=== PATIENT | female | born 1960 | race African-American/Black ===

== ENCOUNTER 2017-04-04 00:46 | Emergency (ER) | payer OTHER ==
[~2017-04-04] VITALS: Ht 162.6 cm; Wt 116.8 kg
[~2017-04-04 00:46] MED LIST: AMOX500T PO; CART300C PO; HYDR-755 PO; METO100T PO; PHENTAB; PLAV75TA29 PO; TRAM50TA PO; TYLELIQ
[2017-04-04 00:51] VITALS: BP 179/108; PULSE 91; RESP 18; TEMP 98.1; O2SAT 99
[2017-04-04 01:05] VITALS: BP 215/108; PULSE 76; RESP 18; O2SAT 96
[2017-04-04 01:21] LABS: MEAN CORPUSCULAR HGB CONC 29.9 % (32.0-36.0)
[2017-04-04] MEDS ORDERED: DEXA4TAB PO (01:23)
[2017-04-04] MEDS ORDERED: NIFE20 PO (01:26)
[2017-04-04] MEDS ORDERED: ZANT150T2 PO (01:26)
[2017-04-04] MEDS ORDERED: OMEP40CA2 PO (01:26)
[2017-04-04] MEDS ORDERED: TYLE325T PO (01:26)
[2017-04-04] MEDS ORDERED: BUTATAB6 PO (01:26)
--- NOTE | 2017-04-04 01:27 | PD ---
HPI Chief Complaint: Numbness/Tingling Time Seen by Provider: 01:18 Travel History International Travel<30 days: No Contact w/Intl Traveler<30days: No Traveled to known affect area: No History of Present Illness HPI 56-year-old female presents to the emergency department by private transportation for complaint of back muscle cramping lower extremity muscle cramping and intermittent or muscle cramping. No chest pain no shortness of breath no nausea no vomiting no abdominal pain. Patient has history of hypertension as well as CAD with previous AL and stent placement 2. Patient states symptoms do not remind her of any cardiac issues. No palpitations no shortness of breath no nausea no vomiting no referred neck jaw or abdominal pain. Patient does not report any headache. The patient states that she has been increasing her fluid hydration recently and increased urine output. Patient rates discomfort 5/10 in intensity. Patient denies any new activity or exercise or injury. No report of bladder or bowel dysfunction. Majority of lower extremity discomfort and cramping is related to the right calf. No new lower extremity swelling. No report of protracted bedrest surgical procedure or long distance travel. Patient takes metoprolol and nifedipine for blood pressure management. No report of diuretic use. PFSH Past Medical History Narrative Medical CAD, AL, cardiac catheterization with stent 2, hypertension, headache, obesity , gastric band, , herniorrhaphy; no tobacco use; nursing notes reviewed Cardiovascular Problems: Yes (AL AND STENTS) Diminished Hearing: No Headaches: Yes Hypertension: Yes Inguinal Hernia: Yes Myocardial Infarction: Yes Tetanus Vaccination: Unknown Influenza Vaccination: No ?: Not Past Surgical History Cardiac Surgery: Yes (STENTS X 2) Section: Yes (X2) Coronary Stent: Yes (x2) Other Surgery: Yes (Gastric lap band, hernia repair with mesh) Social History Alcohol Use: No Tobacco Use: No Substance Use: No Allergies-Medications (Allergen,Severity, Reaction): Coded Allergies: Latex (Verified Allergy, Severe, Rash, 04/04/17) Pineapple (Verified Allergy, Severe, Swelling, 04/04/17) Seafood (Verified Allergy, Severe, Swelling, 04/04/17) Iodine (Verified Allergy, Intermediate, SWELLING, 04/04/17) Reported Meds & Prescriptions Reported Meds & Active Scripts Active Plavix (Clopidogrel Bisulfate) 75 Mg Tab 75 Mg PO DAILY Metoprolol Tartrate 100 Mg Tab 100 Mg PO DAILY Reported Tylenol (Acetaminophen) 325 Mg Tab 650 Mg PO Q4H PRN Zantac (Ranitidine HCl) 150 Mg Tab 150 Mg PO BID Svleiyzavm-Ovsjalqvrmehy-Ausmlpii 50-325-40 Mg Tab 1 Tab PO Q4H PRN Do not exceed 6 tablets/day. Omeprazole 40 Mg Cap 40 Mg PO DAILY Nifedipine 20 Mg Cap 30 Mg PO TID Dexamethasone 4 Mg Tab 4 Mg PO DAILY Hydroxyzine HCl 10 Mg Tab 50 Mg PO HS Metoprolol Tartrate 100 Mg Tab 100 Mg PO DAILY Plavix (Clopidogrel Bisulfate) 75 Mg Tab 75 Mg PO DAILY Review of Systems Except as stated in HPI: all other systems reviewed are Neg General / Constitutional: No: Fever, Chills HENT: No: Congestion Cardiovascular: No: Chest Pain or Discomfort, Diaphoresis, Edema Respiratory: No: Shortness of Breath, Hemoptysis, Pleuritic Pain Gastrointestinal: No: Nausea, Vomiting, Abdominal Pain Genitourinary: Positive: Frequency, Flank Pain Musculoskeletal: Positive: Cramping (back, legs, arms), Pain (back, arms, legs) , No: Weakness, Edema Skin: No Rash, No Lumps Neurologic: No: Weakness, Dizziness, Syncope, Focal Abnormalities, Coordination Problem, Headache, Change in Mentation, Paresthesia Psychiatric: No: Anxiety Endocrine: No: Heat Intolerance Hematologic/Lymphatic: No: Easy Bruising Physical Exam Narrative GENERAL: Well-developed well-nourished obese female in no acute distress no respiratory distress; GCS 15; triage vital signs hypertensive BP SKIN: Warm and dry. HEAD: Normocephalic. EYES: No scleral icterus. No injection or drainage. NECK: Supple, trachea midline. No JVD or lymphadenopathy. CARDIOVASCULAR: Regular rate and rhythm without murmurs, gallops, or rubs. RESPIRATORY: Breath sounds equal bilaterally. No accessory muscle use. GASTROINTESTINAL: Abdomen soft, non-tender, nondistended. MUSCULOSKELETAL: No cyanosis, or edema. Bilateral radial and dorsalis pedis pulses 2+ to palpation. BACK: Nontender without obvious deformity. No CVA tenderness. Data Data Last Documented VS Vital Signs Date Time Temp Pulse Resp B/P Pulse Ox O2 Delivery O2 Flow Rate FiO2 04/04/17 02:20 80 18 167/83 100 Room Air 04/04/17 00:51 98.1 Orders Basic Metabolic Panel (Bmp) (04/04/17 01:18) Ckmb (Isoenzyme) Profile (04/04/17 01:18) Complete Blood Count With Diff (04/04/17:18) Magnesium (Mg) (04/04/17 01:18) Troponin I (04/04/17:18) Ecg Monitoring (04/04/17:18) Bilateral Bp Monitoring (04/04/17:18) Iv Access Insert/Monitor (04/04/17:18) Oximetry (04/04/17:18) Sodium Chloride 0.9% Flush (Ns Flush) (04/04/17 01:30) Urinalysis - C+S If Indicated (04/04/17:18) Ketorolac Inj (Toradol Inj) (04/04/17 01:30) Electrocardiogram (04/04/17 ) Clonidine (Catapres) (04/04/17 02:00) Potassium Chloride (Kcl) (04/04/17 02:45) Labs Laboratory Tests Test 04/04/17 01:35 White Blood Count 11.2 TH/MM3 Red Blood Count 4.57 MIL/MM3 Hemoglobin 9.0 GM/DL Hematocrit 30.2 % Mean Corpuscular Volume 66.1 FL Mean Corpuscular Hemoglobin 19.8 PG Mean Corpuscular Hemoglobin 29.9 % Concent Red Cell Distribution Width 16.4 % Platelet Count 456 TH/MM3 Mean Platelet Volume 8.0 FL Neutrophils (%) (Auto) 71.3 % Lymphocytes (%) (Auto) 20.3 % Monocytes (%) (Auto) 7.6 % Eosinophils (%) (Auto) 0.6 % Basophils (%) (Auto) 0.2 % Neutrophils # (Auto) 8.0 TH/MM3 Lymphocytes # (Auto) 2.3 TH/MM3 Monocytes # (Auto) 0.8 TH/MM3 Eosinophils # (Auto) 0.1 TH/MM3 Basophils # (Auto) 0.0 TH/MM3 CBC Comment AUTO DIFF Differential Comment AUTO DIFF CONFIRMED Platelet Estimate NORMAL Platelet Morphology Comment NORMAL Ovalocytes 1+ Urine Color STRAW Urine Turbidity CLEAR Urine pH 5.5 Urine Specific Ransom 1.025 Urine Protein NEG mg/dL Urine Glucose (UA) NEG mg/dL Urine Ketones NEG mg/dL Urine Occult Blood NEG Urine Nitrite NEG Urine Bilirubin NEG Urine Leukocyte Esterase NEG Urine RBC 0-2 /hpf Urine WBC 0-2 /hpf Urine Squamous Epithelial 0-5 /hpf Cells Urine Bacteria NONE /hpf Microscopic Urinalysis Comment CULT NOT INDICATED Sodium Level 139 MEQ/L Potassium Level 3.3 MEQ/L Chloride Level 103 MEQ/L Carbon Dioxide Level 26.1 MEQ/L Anion Gap 10 MEQ/L Blood Urea Nitrogen 12 MG/DL Creatinine 0.87 MG/DL Estimat Glomerular Filtration 82 ML/MIN Rate Random Glucose 128 MG/DL Calcium Level 8.9 MG/DL Magnesium Level 2.1 MG/DL Total Creatine Kinase 75 U/L Troponin I LESS THAN 0.02 NG/ML MDM Medical Decision Making Medical Screen Exam Complete: Yes Emergency Medical Condition: Yes Medical Record Reviewed: Yes Interpretation(s) EKG: Normal sinus rhythm rate [address] elevation or injury pattern change noted Urinalysis is normal CBC is automated differential patient has anemia hemoglobin 9.0 Troponin I is less than 0.02 CK 75 within normal limits Metabolic panel remarkable for hypokalemia potassium 3.3 normal range BUN and creatinine CBC & BMP Diagram 04/04/17 01:35 Vital Signs Date Time Temp Pulse Resp B/P Pulse Ox O2 Delivery O2 Flow Rate FiO2 04/04/17 02:01 200/104 196/107 04/04/17 01:05 76 18 215/108 96 Room Air 04/04/17 00:51 98.1 91 18 179/108 99 Differential Diagnosis Myalgias, electrolyte disturbance, arrhythmia, atypical chest pain, aortic dissection, uncontrolled hypertension, UTI Narrative Course Patient placed on monitor IV access obtained specimens collected and sent for resulting EKG ordered; Toradol 30 mg IV administered Patient ambulatory to the bathroom without difficulty At 2:40 AM patient resting comfortably blood pressure good response to clonidine Lab values resulted patient identified to have mild hypokalemia oral potassium replacement provided Patient reports she is out of her medications and needs refills Patient is stable at this time for outpatient management and follow-up with primary care provider Diagnosis Primary Impression: Muscle spasm Additional Impressions: Hypokalemia HTN (hypertension) Qualified Code: I10 - Essential hypertension Medication refill Anemia Referrals: [facility] call for appointment Primary Care Physician 2 days Patient Instructions: General Instructions Additional Instructions: Follow-up with primary care provider Add potassium containing foods and beverages to dietary intake Return to the emergency department for any concerns or change in condition Med/Other Pt SpecificInfo: Prescription(s) given Scripts Clopidogrel (Plavix)75 Mg Tab75 Mg PO DAILY #30 TAB Ref 0 Prov:Arcelia Perez MD 04/04/17 Metoprolol Tartrate 100 Mg [id number] Mg PO DAILY #30 TAB Ref 0 Prov:Arcelia Perez MD 04/04/17 Disposition: 01 DISCHARGE HOME Condition: Stable Arcelia Perez MD April 04, 2017 01:27 Arcelia Perez MD April 04, 2017 01:27
[2017-04-04] MEDS ORDERED: KETOROLAC TROMETHAMINE 30 MG/ML (IVP) VIAL IV PUSH ONE (01:30)
[2017-04-04] MEDS ORDERED: SODIUM CHLORIDE 0.9% FLUSH 10 ML FLUSH IVF PRN (01:30)
[2017-04-04 01:48] LABS: BLOOD, URINE NEG (NEG); GLUCOSE,URINE NEG (NEG); KETONE, URINE NEG (NEG); NITRITE,URINE NEG (NEG); PH, URINE 5.5 (5.0-8.5)
[2017-04-04 01:51] LABS: BASOPHIL % 0.2 % (0.0-2.0); EOSINOPHIL # 0.1 TH/MM3 (0-0.4); EOSINOPHIL % 0.6 % (0.0-4.0); HEMATOCRIT 30.2 % (35.0-46.0); LYMPH % 20.3 % (9.0-44.0); LYMPHOCYTE # 2.3 TH/MM3 (1.0-4.8); MEAN CELL VOLUME 66.1 FL (80.0-100.0); MEAN CORPUSCULAR HEMOGLOBIN 19.8 PG (27.0-34.0); MONO % 7.6 % (0.0-8.0); NEUT % 71.3 % (16.0-70.0); PLATELET COUNT 456 TH/MM3 (150-450); RED BLOOD COUNT 4.57 MIL/MM3 (4.00-5.30); RED CELL DISTRIBUTION WIDTH 16.4 % (11.6-17.2); WHITE BLOOD COUNT 11.2 TH/MM3 (4.0-11.0)
[2017-04-04 01:56] LABS: HEMO FLAGS AUTO DIFF
[2017-04-04 01:57] LABS: RBC, URINE 0-2 /hpf (0-3); SQUAMOUS EPITHELIAL CELL URINE 0-5 /hpf (0-5); URINE COLOR STRAW (YELLW/STRAW); WBC, URINE 0-2 /hpf (0-5)
[2017-04-04 01:58] LABS: CHLORIDE 103 MEQ/L (98-107); COMMENT (UR) CULT NOT INDICATED; CULTURE IF INDICATED CULT NOT INDICATED; POTASSIUM 3.3 MEQ/L (3.5-5.1); SODIUM (NA) 139 MEQ/L (136-145)
[2017-04-04] MEDS ORDERED: cloNIDine HCL 0.1 MG TAB PO ONE (02:00)
[2017-04-04 02:01] VITALS: BP_SYST 196; BP_SYST 200; BP_DIAS 104; BP_DIAS 107
[2017-04-04 02:02] LABS: ANION GAP 10 MEQ/L (5-15); BICARBONATE 26.1 MEQ/L (21.0-32.0); BLOOD UREA NITROGEN 12 MG/DL (7-18); MAGNESIUM 2.1 MG/DL (1.5-2.5)
[2017-04-04 02:05] LABS: GLOMERULAR FILTRATION RATE 82 ML/MIN (>89)
[2017-04-04 02:11] LABS: CREATINE KINASE 75 U/L (26-192)
[2017-04-04 02:20] VITALS: BP 167/83; PULSE 80; RESP 18; O2SAT 100
[2017-04-04 02:25] LABS: OVALOCYTES 1+ (NORMAL); PLATELET ESTIMATE SMEAR NORMAL (NORMAL); PLATELET MORPHOLOGY NORMAL (NORMAL); SCAN/DIFF AUTO DIFF CONFIRMED
[2017-04-04] MEDS ORDERED: POTASSIUM CHLORIDE 10 MEQ CONTROLLED RELEASE TAB PO ONE (02:45)
[2017-04-04] MEDS ORDERED: METO100T PO (02:46)
[2017-04-04] MEDS ORDERED: PLAV75TA29 PO (02:46)
--- NOTE | 2017-04-04 09:51 | EKG ---
Date Performed: 04/04/2017 Time Performed: 01:24:52 PTAGE: 56 years EKG: Sinus rhythm Inferior T wave changes are nonspecific Borderline ECG NO PREVIOUS TRACING DOCTOR: Nathalie Ziegler Interpretating Date/Time 04/04/2017 09:49:59
== END 2017-04-04 03:02 | disposition home or self-care (01) ==
LOC: PHED 00:46
DX: M62.838 Other muscle spasm (principal); E87.6 Hypokalemia; I10 Essential (primary) hypertension; D64.9 Anemia, unspecified; I25.2 Old myocardial infarction; I25.10 Atherosclerotic heart disease of native coronary artery without angina pectoris; Z76.0 Encounter for issue of repeat prescription
CPT/HCPCS: 80048; 81001; 82550; 83735; 84484; 85025; 93005; 96374; 99283; J1885

== ENCOUNTER 2017-04-07 14:35 | Emergency (ER) | payer OTHER ==
[~2017-04-07] VITALS: Ht 162.6 cm; Wt 115.0 kg
[~2017-04-07 14:35] MED LIST changes: -AMOX500T PO; +BUTATAB6 PO; -CART300C PO; +DEXA4TAB PO; +NIFE20 PO; +OMEP40CA2 PO; -PHENTAB; -TRAM50TA PO; +TYLE325T PO; -TYLELIQ; +ZANT150T2 PO
[2017-04-07 14:40] VITALS: BP 143/95; PULSE 79; RESP 18; TEMP 98.5; O2SAT 100
[2017-04-07] MEDS ORDERED: guaiFENesin/CODEINE SYRUP 200 MG/20 MG/10 ML CUP PO ONE (15:15)
[2017-04-07] MEDS ORDERED: IBUPROFEN 600 MG TAB PO ONE (15:15)
--- NOTE | 2017-04-07 15:17 | PD ---
HPI Chief Complaint: Cold / Flu Symptoms Time Seen by Provider: 14:54 Travel History International Travel<30 days: No Contact w/Intl Traveler<30days: No Traveled to known affect area: No History of Present Illness HPI 56yo F with PMH of CAD, HTN presents to the ED with c/o productive cough, nasal congestion, throat pain, left rib pain since last night. +Chills. Denies any fever, chest pain, sob, n/v, abdominal pain, trauma, urinary complaint, vaginal complaint, focal weakness or numbness. Took alleve and it did not really help. Pt was here 3 days ago for back and leg muscle spasm and had blood work drawn and urinalysis was negative. Had K of 3.3 which was replaced. Pt states that has improved. PFSH Past Medical History Cardiovascular Problems: Yes ([place] STENTS) Diminished Hearing: No Headaches: Yes Hypertension: Yes Inguinal Hernia: Yes Immunizations Current: Yes Myocardial Infarction: Yes Tetanus Vaccination: > 5 Years Influenza Vaccination: No ?: Not LMP: MENOPAUSE Past Surgical History Cardiac Surgery: Yes (STENTS X 2) Section: Yes (X2) Coronary Stent: Yes (x2) Other Surgery: Yes (Gastric lap band, hernia repair with mesh) Social History Alcohol Use: No Tobacco Use: No Substance Use: No Allergies-Medications (Allergen,Severity, Reaction): Coded Allergies: Latex (Verified Allergy, Severe, Rash, 04/07/17) Pineapple (Verified Allergy, Severe, Swelling, 04/07/17) Seafood (Verified Allergy, Severe, Swelling, 04/07/17) Iodine (Verified Allergy, Intermediate, SWELLING, 04/07/17) Reported Meds & Prescriptions Reported Meds & Active Scripts Active Robitussin 12 Hour Cough Liq (Dextromethorphan Polistirex Liq) 30 Mg/5 Ml Ariella 10 Ml PO Q12H PRN 5 Days Reported Tylenol (Acetaminophen) 325 Mg Tab 650 Mg PO Q4H PRN Zantac (Ranitidine HCl) 150 Mg Tab 150 Mg PO DAILY Nzhrwezgcn-Didbcgfucdnro-Jwievhak 50-325-40 Mg Tab 1 Tab PO Q4H PRN Do not exceed 6 tablets/day. Omeprazole 40 Mg Cap 40 Mg PO DAILY Nifedipine 20 Mg Cap 30 Mg PO BID Dexamethasone 4 Mg Tab 4 Mg PO DAILY Hydroxyzine HCl 10 Mg Tab 50 Mg PO HS Metoprolol Tartrate 100 Mg Tab 100 Mg PO DAILY Plavix (Clopidogrel Bisulfate) 75 Mg Tab 75 Mg PO DAILY Review of Systems Except as stated in HPI: all other systems reviewed are Neg Physical Exam Narrative GENERAL: 56yo F in mild distress. SKIN: Focused skin assessment warm/dry. HEAD: Atraumatic. Normocephalic. EYES: Pupils equal and round. No scleral icterus. No injection or drainage. ENT: +Increase bilateral nasal turbinates. NECK: Trachea midline. No JVD. CARDIOVASCULAR: Regular rate and rhythm. No murmur appreciated. RESPIRATORY: No accessory muscle use. Clear to auscultation. Breath sounds equal bilaterally. GASTROINTESTINAL: Abdomen soft, non-tender, nondistended. No rebound tenderness or guarding. MUSCULOSKELETAL: +TTP left anterior ribs 9-12. No rash, erythema or ecchymoses. NEUROLOGICAL: Awake and alert. No obvious cranial nerve deficits. Motor grossly within normal limits. Normal speech. PSYCHIATRIC: Appropriate mood and affect; insight and judgment normal. Data Data Last Documented VS Vital Signs Date Time Temp Pulse Resp B/P Pulse Ox O2 Delivery O2 Flow Rate FiO2 04/07/17 18:06 78 20 175/91 99 04/07/17 16:43 Room Air 04/07/17 14:40 98.5 Orders Influenzae A/B Antigen (04/07/17 15:03) Ribs, Uni (W/Exp Cxr-Min 3vw) (04/07/17 ) Ibuprofen (Motrin) (04/07/17 15:15) Guaifen-Cod 200-20 Mg/10ml Liq (Robituss (04/07/17 15:15) Acetaminophen (Tylenol) (04/07/17 15:30) Diazepam (Valium) (04/07/17 15:45) Electrocardiogram (04/07/17 15:30) Diphenhydramine Inj (Benadryl Inj) (04/07/17 16:15) Complete Blood Count With Diff (04/07/17 16:09) Basic Metabolic Panel (Bmp) (04/07/17 16:09) Prothrombin Time / Inr (Pt) (04/07/17 16:09) Act Partial Throm Time (Ptt) (04/07/17 16:09) Troponin I (04/07/17 16:09) Ed Urine Pregnancytest Poc (04/07/17 16:09) Ct Thorax/ Chest Wo Iv Contras (04/07/17 ) Labs Laboratory Tests Test 04/07/17 16:18 White Blood Count 8.2 TH/MM3 Red Blood Count 4.82 MIL/MM3 Hemoglobin 9.9 GM/DL Hematocrit 31.9 % Mean Corpuscular Volume 66.2 FL Mean Corpuscular Hemoglobin 20.5 PG Mean Corpuscular Hemoglobin 31.0 % Concent Red Cell Distribution Width 16.6 % Platelet Count 379 TH/MM3 Mean Platelet Volume 8.1 FL Neutrophils (%) (Auto) 56.6 % Lymphocytes (%) (Auto) 26.5 % Monocytes (%) (Auto) 13.4 % Eosinophils (%) (Auto) 3.4 % Basophils (%) (Auto) 0.1 % Neutrophils # (Auto) 4.6 TH/MM3 Lymphocytes # (Auto) 2.2 TH/MM3 Monocytes # (Auto) 1.1 TH/MM3 Eosinophils # (Auto) 0.3 TH/MM3 Basophils # (Auto) 0.0 TH/MM3 CBC Comment AUTO DIFF Differential Comment AUTO DIFF CONFIRMED Target Cells 1+ Ovalocytes 1+ Stomatocytes 1+ Prothrombin Time 10.5 SEC Prothromb Time International 1.0 RATIO Ratio Activated Partial 25.3 SEC Thromboplast Time Sodium Level 141 MEQ/L Potassium Level 3.4 MEQ/L Chloride Level 103 MEQ/L Carbon Dioxide Level 29.1 MEQ/L Anion Gap 9 MEQ/L Blood Urea Nitrogen 10 MG/DL Creatinine 0.79 MG/DL Estimat Glomerular Filtration 92 ML/MIN Rate Random Glucose 90 MG/DL Calcium Level 8.5 MG/DL Troponin I LESS THAN 0.02 NG/ML [facility] Medical Decision Making Medical Screen Exam Complete: Yes Emergency Medical Condition: Yes Interpretation(s) EKG: NSR 69bpm. Normal axis. No ST segment elevation or depression. TWI III. Differential Diagnosis Costochondritis vs. URI vs. Bronchitis vs. Pneumonia Narrative Course 56yo F with flu like symptoms and left sided rib pain. Pt is very tender to palpation on left lower anterior ribs. Xray of left rib and CXR showed no left sided rib fracture. Slight convexity along the ascending aorta, aneurysm cannot be excluded. CT chest recommended. Pt states she has had iodine before and has had itching that was resolved by benadryl. Pt has also had iodine contrast without any itching. Pt denies any anaphylactic reaction with iodine. Explained that I need to use IV contrast to r/o aneurysm and will give her benadryl 50mg IV now. Pt understands risks and benefits and will do the CT with contrast. Discussed with radiologist who actually said I can do CT chest without contrast for aortic aneurysm. CT chest showed normal thoracic aorta diameter. Pt reevaluated at bedside after valium, ibuprofen and states pain has resolved. Cough has also improved after robitussin with codeine. Influenza negative. Labs reviewed, no leukocytosis. H/H low but better than last time. Troponin negative. K: 3.4. I do not believe the rib pain is cardiac. It is very localized and likely related to coughing. Denies any chest pain or sob. Return precautions given. Diagnosis Primary Impression: URI (upper respiratory infection) Qualified Code: J06.9 - Upper respiratory tract infection, unspecified type Patient Instructions: General Instructions Departure Forms: Tests/Procedures Additional Instructions: Please follow up with your PMD in 3-7 days. Return to the ED if symptoms worsen. Med/Other Pt SpecificInfo: Prescription(s) given Scripts Ibuprofen 600 Mg [id number] Mg PO Q8HR PRN (PAIN) #20 TAB Ref 0 Prov:Brinda Jameson DO 04/07/17 Dextromethorphan Polistirex Liq (Robitussin 12 Hour Cough Liq)30 Mg/5 Ml Sus10 Ml PO Q12H PRN (COUGH) 5 Days Ref 0 Prov:Brinda Jameson DO 04/07/17 Disposition: 01 DISCHARGE HOME Condition: Stable Brinda Jameson DO April 07, 2017 15:17
[2017-04-07] MEDS ORDERED: ACETAMINOPHEN 325 MG TAB PO ONE (15:30)
--- NOTE | 2017-04-07 15:43 | RADHPO ---
EXAM DATE/TIME: 04/07/2017 15:16 [facility] COMPARISON: No previous studies available for comparison. INDICATIONS : Lower left side chest and rib pain. Cough and congestion. MEDICAL HISTORY : None. SURGICAL HISTORY : Umbilical hernia repair. ENCOUNTER: Initial ACUITY: 1 day PAIN SCORE: 5/10 LOCATION: Left lower chest FINDINGS: Multiple views of the left ribs were performed. There is no evidence of displaced fracture. No dest ructive lesions or areas of periosteal thickening are seen. Expiratory view of the chest is negative for pneumothorax. The mediastinal structures are midline. Convexity along the ascending aorta. CONCLUSION: 1. No left-sided rib fracture. 2. Slight convexity along the ascending aorta, aneurysm cannot be excluded. CT chest recommended. Ambrocio Holley MD on April 07, 2017 at 15:40 Board Certified Radiologist. This report was verified electronically.
[2017-04-07] MEDS ORDERED: DIAZEPAM 5 MG TAB PO ONE (15:45)
[2017-04-07 15:46] VITALS: BP 156/91; PULSE 76; RESP 22; O2SAT 100
[2017-04-07] MEDS ORDERED: diphenhydrAMINE HCL 50 MG/ML VIAL IV PUSH ONE (16:15)
[2017-04-07 16:36] LABS: CHLORIDE 103 MEQ/L (98-107); POTASSIUM 3.4 MEQ/L (3.5-5.1); SODIUM (NA) 141 MEQ/L (136-145)
[2017-04-07 16:40] LABS: ANION GAP 9 MEQ/L (5-15); BICARBONATE 29.1 MEQ/L (21.0-32.0); BLOOD UREA NITROGEN 10 MG/DL (7-18)
[2017-04-07 16:41] LABS: APTT (PATIENT) 25.3 SEC (24.3-30.1); AUTOMATED NEUTROPHIL # 4.6 TH/MM3 (1.8-7.7); BASOPHIL % 0.1 % (0.0-2.0); EOSINOPHIL # 0.3 TH/MM3 (0-0.4); EOSINOPHIL % 3.4 % (0.0-4.0); HEMATOCRIT 31.9 % (35.0-46.0); LYMPH % 26.5 % (9.0-44.0); LYMPHOCYTE # 2.2 TH/MM3 (1.0-4.8); MEAN CELL VOLUME 66.2 FL (80.0-100.0); MEAN CORPUSCULAR HEMOGLOBIN 20.5 PG (27.0-34.0); MONO % 13.4 % (0.0-8.0); NEUT % 56.6 % (16.0-70.0); PLATELET COUNT 379 TH/MM3 (150-450); PROTHROMBIN TIME - PATIENT 10.5 SEC (9.8-11.6); RED BLOOD COUNT 4.82 MIL/MM3 (4.00-5.30); RED CELL DISTRIBUTION WIDTH 16.6 % (11.6-17.2); WHITE BLOOD COUNT 8.2 TH/MM3 (4.0-11.0)
[2017-04-07 16:43] VITALS: BP 176/93; PULSE 70; RESP 18; O2SAT 98
[2017-04-07 16:43] LABS: GLOMERULAR FILTRATION RATE 92 ML/MIN (>89)
[2017-04-07 16:47] LABS: HEMO FLAGS AUTO DIFF
--- NOTE | 2017-04-07 17:31 | RADHPO ---
EXAM DATE/TIME: 04/07/2017 16:47 [facility] COMPARISON: RIBS LEFT(W PA CXR MIN 3VWS), April 07, 2017, 15:16. INDICATIONS : Abnormal rib xray. Evaluate for aneurysm. RADIATION DOSE: 19.21 CTDIvol (mGy) MEDICAL HISTORY : Cardiovascular disease. Hypertension. Anticoagulant therapy. SURGICAL HISTORY : Umbilical hernia repair. Coronary artery stent. Gastric lap band. ENCOUNTER: Initial ACUITY: 1 day PAIN SCALE: 4/10 LOCATION: chest TECHNIQUE: Volumetric scanning of the chest was performed. Using automated exposure control and adjustment of t he mA and/or kV according to patient size, radiation dose was kept as low as reasonably achievable to obtain optimal diagnostic quality images. FINDINGS: LUNGS: There is no consolidation or pneumothorax. No concerning pulmonary nodule is visualized. PLEURAE: There is no pleural thickening or pleural effusion. MEDIASTINUM: Thoracic aortic diameter within normal limits measuring less than 4 cm. Coronary artery calcification s noted. The heart is diffusely enlarged. Small hiatal hernia. AXILLAE: Within normal limits. No lymphadenopathy. MUSCULOSKELETAL: Within normal limits for patient age. MISCELLANEOUS: Laparoscopic band in place in the gastric region. CONCLUSION: 1. Thoracic aorta diameter within normal limits. 2. Diffusely enlarged heart. 3. Coronary artery calcifications. 4. Lungs clear. 5. Postsurgical findings at the stomach indicating laparoscopic band. Александр Preston MD on April 07, 2017 at 17:22 Board Certified Radiologist. This report was verified electronically.
[2017-04-07] MEDS ORDERED: DEXT1SUS PO (17:46)
[2017-04-07 17:51] LABS: OVALOCYTES 1+ (NORMAL); TARGET CELLS 1+ (NORMAL)
[2017-04-07 17:52] LABS: SCAN/DIFF AUTO DIFF CONFIRMED; STOMATOCYTES 1+ (NORMAL)
[2017-04-07 18:06] VITALS: BP 175/91
[2017-04-07] MEDS ORDERED: IBUP-232 PO (18:09)
--- NOTE | 2017-04-08 05:56 | EKG ---
Date Performed: 04/07/2017 Time Performed: 15:30:46 PTAGE: 56 years EKG: Sinus rhythm Normal ECG PREVIOUS TRACING : 04/04/2017 01.24 Compared to prior tracing no significant change DOCTOR: Trinity Bernal Interpretating Date/Time 04/08/2017 05:55:54
== END 2017-04-07 18:16 | disposition home or self-care (01) ==
LOC: PHED 14:35
DX: J06.9 Acute upper respiratory infection, unspecified (principal); R07.81 Pleurodynia; I10 Essential (primary) hypertension; I25.2 Old myocardial infarction; I25.10 Atherosclerotic heart disease of native coronary artery without angina pectoris; R79.1 Abnormal coagulation profile; Z95.5 Presence of coronary angioplasty implant and graft; Z98.84 Bariatric surgery status
CPT/HCPCS: 71101; 71250; 80048; 84484; 84703; 85025; 85610; 85730; 87804; 93005; 96374; 99284; J1200

== ENCOUNTER 2017-06-25 22:43 | Emergency (ER) | payer OTHER ==
[~2017-06-25] VITALS: Ht 162.6 cm; Wt 129.5 kg
[~2017-06-25 22:43] MED LIST changes: +DEXT1SUS PO; +IBUP-232 PO
[2017-06-25 22:46] VITALS: BP 176/94; PULSE 96; RESP 18; TEMP 98.4; O2SAT 98
[2017-06-25] MEDS ORDERED: OMEP40CA2 PO (23:05)
[2017-06-25] MEDS ORDERED: SODIUM CHLORIDE 0.9% FLUSH 10 ML FLUSH IVF PRN (23:15)
--- NOTE | 2017-06-25 23:19 | PD ---
HPI Chief Complaint: Edema Time Seen by Provider: 23:13 Travel History International Travel<30 days: No Contact w/Intl Traveler<30days: No Traveled to known affect area: No History of Present Illness HPI 57-year-old female presents to the emergency department by private transportation for complaint of bilateral lower extremity and peel edema. Patient states that her discomfort is 5/10 in intensity and feels like she is walking on cotton. Patient also complains of hip pain. Patient denies any chest pain or shortness of breath. Patient's had no fever or chills. Patient denies orthopnea or PND. Patient states that she has recently had her blood pressure medication changed several times and her primary just recently put her back on nifedipine. Patient does not take a diuretic. Patient also complains of nightly muscle cramps affecting both legs and occasionally both hands. Patient states she has not contacted her primary care provider regarding this concern. Patient also complains of generalized fatigue. Patient states that she is concerned because she has had 2 prior heart attacks. Patient does not take aspirin or other medications except for nifedipine. Patient denies dyslipidemia tobaccoism or diabetes. PFSH Past Medical History Narrative Medical CAD [place] 2 cardiac catheterization with stents hypertension GERD LAP-BAND no tobacco use; nursing notes. Cardiovascular Problems: Yes (2 MIs and stents) Diminished Hearing: No GERD: Yes Headaches: Yes Hypertension: Yes Inguinal Hernia: Yes Immunizations Current: Yes Myocardial Infarction: Yes Tetanus Vaccination: > 5 Years Influenza Vaccination: No ?: Not LMP: skips : 5 Para: 2 : 3 Past Surgical History Cardiac Surgery: Yes (STENTS X 2) Section: Yes (X2) Coronary Stent: Yes (x2) Other Surgery: Yes (Gastric lap band, hernia repair with mesh) Social History Alcohol Use: No Tobacco Use: No Substance Use: No Allergies-Medications (Allergen,Severity, Reaction): Coded Allergies: Latex (Verified Allergy, Severe, Rash, 06/25/17) Pineapple (Verified Allergy, Severe, Swelling, 06/25/17) Seafood (Verified Allergy, Severe, Swelling, 06/25/17) Iodine (Verified Allergy, Intermediate, SWELLING, 06/25/17) Reported Meds & Prescriptions Reported Meds & Active Scripts Active Macrobid (Nitrofurantoin Monohydrate Macrocrystals) 100 Mg Capsule 100 Mg PO BID 7 Days Reported Omeprazole 40 Mg Cap 40 Mg PO BID Zantac (Ranitidine HCl) 150 Mg Tab 150 Mg PO DAILY [place]-Jgcckskcdwsjw-Gnrckhmv 50-325-40 Mg Tab 1 Tab PO Q4H PRN Do not exceed 6 tablets/day. Nifedipine 20 Mg Cap 30 Mg PO BID Dexamethasone 4 Mg Tab 4 Mg PO DAILY Hydroxyzine HCl 10 Mg Tab 50 Mg PO HS Metoprolol Tartrate 100 Mg Tab 100 Mg PO DAILY Plavix (Clopidogrel Bisulfate) 75 Mg Tab 75 Mg PO DAILY Review of Systems Except as stated in HPI: all other systems reviewed are Neg General / Constitutional: No: Fever, Chills HENT: No: Congestion Cardiovascular: Positive: Dyspnea on exertion, Edema, No: Chest Pain or Discomfort Respiratory: No: Shortness of Breath, Orthopnea, Pleuritic Pain Gastrointestinal: No: Nausea, Vomiting, Diarrhea, Abdominal Pain Genitourinary: No: Urgency, Frequency, Dysuria Musculoskeletal: Positive: Cramping, Edema, No: Myalgias, Arthralgias Skin: No Rash Neurologic: No: Weakness, Dizziness Psychiatric: No: Anxiety Hematologic/Lymphatic: No: Lymph Node Enlargement Physical Exam Narrative GENERAL: Well-developed well-nourished female in no acute distress no respiratory distress SKIN: Warm and dry. HEAD: Normocephalic. EYES: No scleral icterus. No injection or drainage. NECK: Supple, trachea midline. No JVD or lymphadenopathy. CARDIOVASCULAR: Regular rate and rhythm without murmurs, gallops, or rubs. RESPIRATORY: Breath sounds equal bilaterally. No accessory muscle use. GASTROINTESTINAL: Abdomen soft, non-tender, nondistended. MUSCULOSKELETAL: No cyanosis, bilateral lower leg and pedal edema; dorsalis pedis pulses 2+ to palpation bilaterally. No cording no Homans sign. BACK: Nontender without obvious deformity. No CVA tenderness. Data Data Last Documented VS Vital Signs Date Time Temp Pulse Resp B/P Pulse Ox O2 Delivery O2 Flow Rate FiO2 06/26/17 00:05 14 100 Room Air 06/26/17 00:00 75 139/86 06/25/17 22:46 98.4 Orders Complete Blood Count With Diff (06/25/17 23:13) B-Type Natriuretic Peptide (06/25/17 23:13) Act Partial Throm Time (Ptt) (06/25/17 23:13) Prothrombin Time / Inr (Pt) (06/25/17 23:13) Magnesium (Mg) (06/25/17 23:13) Ckmb (Isoenzyme) Profile (06/25/17 23:13) Troponin I (06/25/17 23:13) Urinalysis - C+S If Indicated (06/25/17 23:13) Iv Access Insert/Monitor (06/25/17 23:13) Electrocardiogram (06/25/17 23:13) Ecg Monitoring (06/25/17 23:13) Oximetry (06/25/17 23:13) Oxygen Administration (06/25/17 23:13) Chest, Single Ap (06/25/17 23:13) Sodium Chloride 0.9% Flush (Ns Flush) (06/25/17 23:15) Thyroid Stimulating Hormone (06/25/17 23:13) Basic Metabolic Panel (Bmp) (06/25/17 23:13) Urine Culture (06/25/17 23:25) Ceftriaxone Inj (Rocephin Inj) (06/26/17 00:30) Potassium Chloride (Kcl) (06/26/17 00:30) Labs Laboratory Tests Test 06/25/17 06/25/17 23:25 23:35 Urine Color YELLOW Urine Turbidity CLOUDY Urine pH 6.0 Urine Specific [place] 1.032 Urine Protein TRACE mg/dL Urine Glucose (UA) NEG mg/dL Urine Ketones 15 mg/dL Urine Occult Blood NEG Urine Nitrite NEG Urine Bilirubin NEG Urine Leukocyte Esterase SMALL Urine RBC 0-2 /hpf Urine WBC 3-5 /hpf Urine Squamous Epithelial > 8 /hpf Cells Urine Bacteria MANY /hpf Microscopic Urinalysis Comment CULTURE INDICATED White Blood Count 18.8 TH/MM3 Red Blood Count 4.43 MIL/MM3 Hemoglobin 9.5 GM/DL Hematocrit 29.9 % Mean Corpuscular Volume 67.5 FL Mean Corpuscular Hemoglobin 21.5 PG Mean Corpuscular Hemoglobin 31.9 % Concent Red Cell Distribution Width 18.8 % Platelet Count 522 TH/MM3 Mean Platelet Volume 7.6 FL Neutrophils (%) (Auto) 66.2 % Lymphocytes (%) (Auto) 24.2 % Monocytes (%) (Auto) 8.0 % Eosinophils (%) (Auto) 0.9 % Basophils (%) (Auto) 0.7 % Neutrophils # (Auto) 12.5 TH/MM3 Lymphocytes # (Auto) 4.5 TH/MM3 Monocytes # (Auto) 1.5 TH/MM3 Eosinophils # (Auto) 0.2 TH/MM3 Basophils # (Auto) 0.1 TH/MM3 CBC Comment AUTO DIFF Differential Comment AUTO DIFF CONFIRMED Platelet Estimate HIGH Platelet Morphology Comment NORMAL Ovalocytes 1+ Prothrombin Time 10.5 SEC Prothromb Time International 1.0 RATIO Ratio Activated Partial 24.0 SEC Thromboplast Time Sodium Level 139 MEQ/L Potassium Level 3.1 MEQ/L Chloride Level 104 MEQ/L Carbon Dioxide Level 29.3 MEQ/L Anion Gap 6 MEQ/L Blood Urea Nitrogen 22 MG/DL Creatinine 1.20 MG/DL Estimat Glomerular Filtration 56 ML/MIN Rate Random Glucose 101 MG/DL Calcium Level 8.7 MG/DL Magnesium Level 2.0 MG/DL Total Creatine Kinase 70 U/L Troponin I LESS THAN 0.02 NG/ML B-Type Natriuretic Peptide 20 PG/ML Thyroid Stimulating Hormone 1.800 uIU/ML 3rd Gen [facility] Medical Decision Making Medical Screen Exam Complete: Yes Emergency Medical Condition: Yes Medical Record Reviewed: Yes Interpretation(s) EKG: Normal sinus rhythm rate [address] elevation or injury pattern change or ectopy noted FINDINGS: Single AP view of the chest. The lungs are clear. Mild cardiac silhouette enlargement. No evidence of pleural effusion or pneumothorax. CONCLUSION: Mild cardiac silhouette enlargement. No acute cardiopulmonary disease identified. Александр Preston MD on June 26, 2017 at 0:11 Board Certified Radiologist. This report was verified electronically. tropnin I: less than 0.02, not elevated bnp: 20, not elevated ua: Many bacteria specific gravity 1.032, trace ketones TSH: 1.800, within normal range CBC & BMP Diagram 06/25/17 23:35 Differential Diagnosis Pedal edema, renal insufficiency, hypoproteinemia/hypoalbuminemia, medication side effect, volume overload, CHF, ACS, Lymphedema Narrative Course IV access obtained specimens collected and sent for resulting EKG ordered EKG sinus rhythm no acute injury pattern no ST elevation or ectopy normal axis and intervals Labs resulted cc automated differential remarkable for white count 18,800 and anemia of chronic disease hemoglobin 9.5 metabolic panel is remarkable for renal insufficiency BUN of 22 and creatinine 1.20 also hypokalemia potassium 3.1I, benign And random glucose grossly within normal limits Troponin I is less than 0.02, not elevated BNP is 20, not elevated also TSH is 1.00 values within normal range next line urinalysis shows many bacteria Cavalier gravity 1.032 normal and cultures indicated Patient given one-time dose of Rocephin IV will be given prescription for Macrobid and was also administered oral replacement of potassium. Diagnosis Primary Impression: UTI (urinary tract infection) Qualified Code: N39.0 - Urinary tract infection without hematuria, site unspecified Additional Impressions: Hypokalemia Renal insufficiency Referrals: Primary Care Physician call for appointment Patient Instructions: General Instructions Additional Instructions: Elevate lower extremities Increase fluid hydration Complete course of antibiotic Return to the emergency department for a concerns or change in condition Follow-up with your primary care provider Add potassium containing foods and beverages to dietary intake Med/Other Pt SpecificInfo: Prescription(s) given Scripts Nitrofurantoin Monohydrate Macrocrystals (Macrobid)100 Mg [id number] Mg PO BID 7 Days Ref 0 Prov:Arcelia Perez MD 06/26/17 Disposition: 01 DISCHARGE HOME Condition: Stable Arcelia Perez MD Jun 25, 2017 23:19
[2017-06-25 23:50] LABS: BLOOD, URINE NEG (NEG); GLUCOSE,URINE NEG (NEG); KETONE, URINE 15 mg/dL (NEG); NITRITE,URINE NEG (NEG)
[2017-06-25 23:53] LABS: AUTOMATED NEUTROPHIL # 12.5 TH/MM3 (1.8-7.7); BASOPHIL # 0.1 TH/MM3 (0-0.2); BASOPHIL % 0.7 % (0.0-2.0); EOSINOPHIL # 0.2 TH/MM3 (0-0.4); EOSINOPHIL % 0.9 % (0.0-4.0); HEMATOCRIT 29.9 % (35.0-46.0); LYMPH % 24.2 % (9.0-44.0); LYMPHOCYTE # 4.5 TH/MM3 (1.0-4.8); MEAN CELL VOLUME 67.5 FL (80.0-100.0); MEAN CORPUSCULAR HEMOGLOBIN 21.5 PG (27.0-34.0); MEAN CORPUSCULAR HGB CONC 31.9 % (32.0-36.0); NEUT % 66.2 % (16.0-70.0); PLATELET COUNT 522 TH/MM3 (150-450); RED BLOOD COUNT 4.43 MIL/MM3 (4.00-5.30); RED CELL DISTRIBUTION WIDTH 18.8 % (11.6-17.2); WHITE BLOOD COUNT 18.8 TH/MM3 (4.0-11.0)
[2017-06-25 23:58] LABS: HEMO FLAGS AUTO DIFF
[2017-06-26] VITALS: BP 139/86; PULSE 75; RESP 14; O2SAT 100
[2017-06-26] LABS: CHLORIDE 104 MEQ/L (98-107); POTASSIUM 3.1 MEQ/L (3.5-5.1); SODIUM (NA) 139 MEQ/L (136-145)
[2017-06-26 00:03] LABS: ANION GAP 6 MEQ/L (5-15); BICARBONATE 29.3 MEQ/L (21.0-32.0); BLOOD UREA NITROGEN 22 MG/DL (7-18)
[2017-06-26 00:04] LABS: RBC, URINE 0-2 /hpf (0-3); SQUAMOUS EPITHELIAL CELL URINE > 8 /hpf (0-5); URINE COLOR YELLOW (YELLW/STRAW)
[2017-06-26 00:05] VITALS: RESP 14; O2SAT 100
[2017-06-26 00:05] LABS: BACTERIA, URINE MANY /hpf; COMMENT (UR) CULTURE INDICATED; CULTURE IF INDICATED CULTURE INDICATED
[2017-06-26 00:06] LABS: PROTHROMBIN TIME - PATIENT 10.5 SEC (9.8-11.6)
[2017-06-26 00:07] LABS: GLOMERULAR FILTRATION RATE 56 ML/MIN (>89)
[2017-06-26 00:10] LABS: CREATINE KINASE 70 U/L (26-192)
--- NOTE | 2017-06-26 00:13 | RADRPT ---
EXAM DATE/TIME: 06/25/2017 23:59 [facility] COMPARISON: No previous studies available for comparison. INDICATIONS : Chest discomfort, fatigue, swelling in lower extremities for 2 weeks MEDICAL HISTORY : Cardiovascular disease. Hypertension. Anticoagulant therapy SURGICAL HISTORY : Coronary artery stent ENCOUNTER: Initial ACUITY: 2 weeks PAIN SCORE: 0/10 LOCATION: Bilateral chest FINDINGS: Single AP view of the chest. The lungs are clear. Mild cardiac silhouette enlargement. No evidence of pleural effusion or pneumothorax. CONCLUSION: Mild cardiac silhouette enlargement. No acute cardiopulmonary disease identified. Александр Preston MD on June 26, 2017 at 0:11 Board Certified Radiologist. This report was verified electronically.
[2017-06-26 00:18] LABS: OVALOCYTES 1+ (NORMAL); PLATELET ESTIMATE SMEAR HIGH (NORMAL); PLATELET MORPHOLOGY NORMAL (NORMAL); SCAN/DIFF AUTO DIFF CONFIRMED
[2017-06-26] MEDS ORDERED: MACR100C2 PO (00:25)
[2017-06-26] MEDS ORDERED: cefTRIAXone INJ 1,000 MG in SODIUM CHLORIDE 0.9% INJ 100 ML IV ONE (00:30)
[2017-06-26] MEDS ORDERED: POTASSIUM CHLORIDE 20 MEQ CONTROLLED RELEASE TAB PO ONE (00:30)
[2017-06-26 01:20] VITALS: BP 154/81; PULSE 74; RESP 14; O2SAT 100
[2017-06-26] MEDS ORDERED: MAGN250T11 PO (01:22)
[2017-06-26] MEDS ORDERED: ASPI325T PO (01:22)
[2017-06-26] MEDS ORDERED: VITA400C5 PO (01:22)
[2017-06-26] MEDS ORDERED: KRIL1CAP9 PO (01:22)
[2017-06-26] MEDS ORDERED: CHOL400D2 PO (01:22)
--- NOTE | 2017-06-26 07:02 | EKG ---
Date Performed: 06/25/2017 Time Performed: 23:50:33 PTAGE: 57 years EKG: Sinus rhythm NORMAL ECG No significant change from prior electrocardiogram. PREVIOUS TRACING : 04/07/2017 15.30 DOCTOR: Efren Osman Interpretating Date/Time 06/26/2017 07:02:33
== END 2017-06-26 01:53 | disposition home or self-care (01) ==
LOC: PHED 22:43
DX: N39.0 Urinary tract infection, site not specified (principal); B96.89 Other specified bacterial agents as the cause of diseases classified elsewhere; E87.6 Hypokalemia; N28.9 Disorder of kidney and ureter, unspecified; R07.89 Other chest pain; I25.2 Old myocardial infarction; I10 Essential (primary) hypertension; I25.10 Atherosclerotic heart disease of native coronary artery without angina pectoris; K21.9 Gastro-esophageal reflux disease without esophagitis; Z79.02 Long term (current) use of antithrombotics/antiplatelets; Z79.899 Other long term (current) drug therapy; Z95.5 Presence of coronary angioplasty implant and graft
CPT/HCPCS: 71010; 80048; 81001; 82550; 83735; 83880; 84443; 84484; 85025; 85610; 85730; 87086; 93005; 96365; 99285; J0696

== ENCOUNTER 2017-06-28 10:01 | Emergency (ER) | payer OTHER ==
[~2017-06-28] VITALS: Ht 162.6 cm; Wt 136.0 kg
[~2017-06-28 10:01] MED LIST changes: +ASPI325T PO; +CHOL400D2 PO; -DEXT1SUS PO; -IBUP-232 PO; +KRIL1CAP9 PO; +MACR100C2 PO; +MAGN250T11 PO; -TYLE325T PO; +VITA400C5 PO
[2017-06-28 10:05] VITALS: BP 141/76; PULSE 75; RESP 19; TEMP 98.2; O2SAT 99
--- NOTE | 2017-06-28 10:14 | PD ---
HPI Chief Complaint: NERI LE CRAMPS Time Seen by Provider: 10:05 Travel History International Travel<30 days: No Contact w/Intl Traveler<30days: No Traveled to known affect area: No History of Present Illness HPI C/O BLE CRAMPY PAIN (RIGHT THIGH AND LEFT CALF), 10/10 WHILE AMBULATING, PAIN WAS SO SEVERE THAT SHE COULD NOT HOLD HER OWN WEIGHT AND SHE NEARLY FELL DOWN. NO ACTUAL WEAKNESS OR NUMBNESS TO EXTREMITIES.....PCP IS DELTA FELIX?, CURRENTLY DX WITH UTI BUT HAS NOT TAKEN HER FIRST PO ABX. PATIENT ADMITS TO A HISTORY OF HTN/AL S/P 2 STENTS AND IS ON PLAVIX PO PFSH Past Medical History Cardiovascular Problems: Yes (2 MIs and stents) Diminished Hearing: No GERD: Yes Headaches: Yes Hypertension: Yes Inguinal Hernia: Yes Immunizations Current: Yes Myocardial Infarction: Yes : 5 Para: 2 : 3 Past Surgical History Cardiac Surgery: Yes (STENTS X 2) Section: Yes (X2) Coronary Stent: Yes (x2) Other Surgery: Yes (Gastric lap band, hernia repair with mesh) Social History Alcohol Use: No Tobacco Use: No Substance Use: No Allergies-Medications (Allergen,Severity, Reaction): Coded Allergies: Latex (Verified Allergy, Severe, Rash, 06/25/17) Pineapple (Verified Allergy, Severe, Swelling, 06/25/17) Seafood (Verified Allergy, Severe, Swelling, 06/25/17) Iodine (Verified Allergy, Intermediate, SWELLING, 06/25/17) Reported Meds & Prescriptions Reported Meds & Active Scripts Active Baclofen 20 Mg Tab 20 Mg PO TID Potassium Chloride Microencaps 20 Meq Tab 20 Meq PO Q12HR Reported Vitamin D (Cholecalciferol) 400 Unit/Ml Drops 400 Units PO DAILY E-400 (Vitamin E) 400 Unit Cap 1 Cap PO DAILY Megared [place]-3 Krill Oil (Krill Oil) 500 Mg Cap 350 Mg PO DAILY Magnesium Oxide 250 Mg Tab 250 Mg PO DAILY Aspirin 325 Mg Tab 325 Mg PO DAILY Omeprazole 40 Mg Cap 40 Mg PO BID Zantac (Ranitidine HCl) 150 Mg Tab 150 Mg PO DAILY [place]-Mjsxudnokcpch-Pvlmxugo 50-325-40 Mg Tab 1 Tab PO Q4H PRN Do not exceed 6 tablets/day. Nifedipine 20 Mg Cap 30 Mg PO BID Dexamethasone 4 Mg Tab 4 Mg PO DAILY Hydroxyzine HCl 10 Mg Tab 50 Mg PO HS Metoprolol Tartrate 100 Mg Tab 100 Mg PO DAILY Plavix (Clopidogrel Bisulfate) 75 Mg Tab 75 Mg PO DAILY Review of Systems Except as stated in HPI: all other systems reviewed are Neg Musculoskeletal: Positive: Cramping Physical Exam Narrative GENERAL: SKIN: Warm and dry. HEAD: Atraumatic. Normocephalic. EYES: Pupils equal and round. No scleral icterus. No injection or drainage. ENT: No nasal bleeding or discharge. Mucous membranes pink and moist. NECK: Trachea midline. No JVD. CARDIOVASCULAR: Regular rate and rhythm. RESPIRATORY: No accessory muscle use. Clear to auscultation. Breath sounds equal bilaterally. GASTROINTESTINAL: Abdomen soft, non-tender, nondistended. Hepatic and splenic margins not palpable. MUSCULOSKELETAL: Extremities without clubbing, cyanosis, or edema. No obvious deformities. NEUROLOGICAL: Awake and alert. No obvious cranial nerve deficits. Motor grossly within normal limits. Five out of 5 muscle strength in the arms and legs. Normal speech. PSYCHIATRIC: Appropriate mood and affect; insight and judgment normal. Data Data Last Documented VS Vital Signs Date Time Temp Pulse Resp B/P Pulse Ox O2 Delivery O2 Flow Rate FiO2 06/28/17 10:15 75 99 Room Air 06/28/17 10:05 98.2 19 141/76 Orders Complete Blood Count With Diff (06/28/17 10:06) Comprehensive Metabolic Panel (06/28/17 10:06) Prothrombin Time / Inr (Pt) (06/28/17 10:06) Act Partial Throm Time (Ptt) (06/28/17 10:06) Lipase (06/28/17 10:06) Thyroid Stimulating Hormone (06/28/17 10:06) Us Leg Venous Doppler Bilat (06/28/17 ) Lorazepam Inj (Ativan Inj) (06/28/17 10:15) Ketorolac Inj (Toradol Inj) (06/28/17 10:15) Potassium Chloride (Kcl) (06/28/17 11:00) Labs Laboratory Tests Test 06/28/17 10:31 White Blood Count 12.7 TH/MM3 Red Blood Count 4.78 MIL/MM3 Hemoglobin 9.9 GM/DL Hematocrit 32.2 % Mean Corpuscular Volume 67.4 FL Mean Corpuscular Hemoglobin 20.6 PG Mean Corpuscular Hemoglobin 30.6 % Concent Red Cell Distribution Width 18.8 % Platelet Count 485 TH/MM3 Mean Platelet Volume 7.5 FL Neutrophils (%) (Auto) 51.0 % Lymphocytes (%) (Auto) 40.7 % Monocytes (%) (Auto) 6.4 % Eosinophils (%) (Auto) 1.5 % Basophils (%) (Auto) 0.4 % Neutrophils # (Auto) 6.4 TH/MM3 Lymphocytes # (Auto) 5.2 TH/MM3 Monocytes # (Auto) 0.8 TH/MM3 Eosinophils # (Auto) 0.2 TH/MM3 Basophils # (Auto) 0.1 TH/MM3 CBC Comment AUTO DIFF Differential Comment AUTO DIFF CONFIRMED Ovalocytes 1+ Prothrombin Time 10.4 SEC Prothromb Time International 0.9 RATIO Ratio Activated Partial 21.6 SEC Thromboplast Time Sodium Level 140 MEQ/L Potassium Level 3.1 MEQ/L Chloride Level 104 MEQ/L Carbon Dioxide Level 29.8 MEQ/L Anion Gap 6 MEQ/L Blood Urea Nitrogen 14 MG/DL Creatinine 0.82 MG/DL Estimat Glomerular Filtration 88 ML/MIN Rate Random Glucose 76 MG/DL Calcium Level 8.2 MG/DL Total Bilirubin 0.3 MG/DL Aspartate Amino Transf 17 U/L (AST/SGOT) Alanine Aminotransferase 26 U/L (ALT/SGPT) Alkaline Phosphatase 74 U/L Total Protein 6.8 GM/DL Albumin 2.9 GM/DL Lipase 127 U/L Thyroid Stimulating Hormone 4.380 uIU/ML 3rd Gen [facility] Medical Decision Making Medical Screen Exam Complete: Yes Emergency Medical Condition: Yes Medical Record Reviewed: Yes Differential Diagnosis LEG SPASMS V DVT V HYPOKALEMIA Narrative Course PATIENT FOUND TO BE HYPOKALEMIC AGAIN, CURRENTLY AWAITING ULTRS FOR DVT STUDIES OF 111. AT 1140, ULTRS IS NEG FOR DVT, LEFT POPLITEAL CYST NOTED AND ALL THESE FINDINGS WERE INFORMED TO PATIENT AND FAMILY AT BEDSIDE Diagnosis Primary Impression: LEG SPASMS DUE TO HYPOKALEMIA Additional Impression: LEFT POPLITEAL CYST Patient Instructions: General Instructions, Hypokalemia (ED), Muscle Cramp (ED) Scripts Baclofen 20 Mg Tab20 Mg PO TID #15 TAB Ref 0 Prov:Ameya Felipe MD 06/28/17 Potassium Chloride Microencaps 20 Meq Tab20 Meq PO Q12HR #14 TAB Prov:Ameya Felipe MD 06/28/17 Disposition: 01 DISCHARGE HOME Condition: Stable Ameya Felipe MD Jun 28, 2017 10:14
[2017-06-28] MEDS ORDERED: LORazepam 2 MG/ML VIAL IV PUSH ONE ×2 (10:15→12:00)
[2017-06-28] MEDS ORDERED: KETOROLAC TROMETHAMINE 30 MG/ML (IVP) VIAL IV PUSH ONE (10:15)
[2017-06-28 10:38] LABS: AUTOMATED NEUTROPHIL # 6.4 TH/MM3 (1.8-7.7); BASOPHIL # 0.1 TH/MM3 (0-0.2); BASOPHIL % 0.4 % (0.0-2.0); EOSINOPHIL # 0.2 TH/MM3 (0-0.4); EOSINOPHIL % 1.5 % (0.0-4.0); HEMATOCRIT 32.2 % (35.0-46.0); LYMPH % 40.7 % (9.0-44.0); LYMPHOCYTE # 5.2 TH/MM3 (1.0-4.8); MEAN CELL VOLUME 67.4 FL (80.0-100.0); MEAN CORPUSCULAR HEMOGLOBIN 20.6 PG (27.0-34.0); MEAN CORPUSCULAR HGB CONC 30.6 % (32.0-36.0); MONO % 6.4 % (0.0-8.0); PLATELET COUNT 485 TH/MM3 (150-450); RED BLOOD COUNT 4.78 MIL/MM3 (4.00-5.30); RED CELL DISTRIBUTION WIDTH 18.8 % (11.6-17.2); WHITE BLOOD COUNT 12.7 TH/MM3 (4.0-11.0)
[2017-06-28 10:46] LABS: CHLORIDE 104 MEQ/L (98-107); POTASSIUM 3.1 MEQ/L (3.5-5.1); SODIUM (NA) 140 MEQ/L (136-145)
[2017-06-28 10:50] LABS: ANION GAP 6 MEQ/L (5-15); APTT (PATIENT) 21.6 SEC (24.3-30.1); BICARBONATE 29.8 MEQ/L (21.0-32.0); BLOOD UREA NITROGEN 14 MG/DL (7-18); HEMO FLAGS AUTO DIFF; INTERNATIONAL NORMALIZED RATIO 0.9 RATIO; PROTHROMBIN TIME - PATIENT 10.4 SEC (9.8-11.6)
[2017-06-28 10:53] LABS: ALT (GPT) 26 U/L (10-53); AST (GOT) 17 U/L (15-37); GLOMERULAR FILTRATION RATE 88 ML/MIN (>89)
[2017-06-28 10:55] LABS: TOTAL BILIRUBIN ADULT 0.3 MG/DL (0.2-1.0)
[2017-06-28 10:56] LABS: ALKALINE PHOSPHATASE 74 U/L (45-117)
[2017-06-28] MEDS ORDERED: POTASSIUM CHLORIDE 10 MEQ CONTROLLED RELEASE TAB PO ONE (11:00)
[2017-06-28] MEDS ORDERED: POTA20TA5 PO (11:17)
[2017-06-28] MEDS ORDERED: BACL20TA PO (11:19)
[2017-06-28 11:31] LABS: OVALOCYTES 1+ (NORMAL); SCAN/DIFF AUTO DIFF CONFIRMED
--- NOTE | 2017-06-28 11:34 | RADRPT ---
EXAM DATE/TIME: 06/28/2017 15:53 [facility] COMPARISON: No previous studies available for comparison. INDICATIONS : Bilateral leg pain. MEDICAL HISTORY : Myocardial infarction. Hypertension. Gastroesophageal reflux disease. Inguinal hernia. SURGICAL HISTORY : Coronary artery stent. section. Cardiac stents, x2. Gastric lap band. Hernia repair with mesh . ENCOUNTER: Initial ACUITY: 2 months PAIN SCORE: 9/10 LOCATION: Bilateral legs. TECHNIQUE: Venous ultrasound of the left and right leg was performed from the inguinal ligament to the proximal calf. Real-time, color Doppler and spectral tracing, compression and augmentation techniques were us ed. FINDINGS: RIGHT LEG: There is normal compressibility of the deep venous system from the inguinal region to the proximal ca lf. No echogenic clot is seen in the lumen of the common femoral, femoral, popliteal, and posterior tibial veins. There is a normal response of the venous system to proximal and distal augmentation an d respiration. LEFT LEG: There is normal compressibility of the deep venous system from the inguinal region to the proximal ca lf. No echogenic clot is seen in the lumen of the common femoral, femoral, popliteal, and posterior tibial veins. There is a normal response of the venous system to proximal and distal augmentation an d respiration. 4 cm popliteal cyst is evident. CONCLUSION: Left popliteal cysts otherwise negative. Trino Fofana MD FACR on June 28, 2017 at 11:32 Board Certified Radiologist. This report was verified electronically.
--- NOTE | 2017-06-28 13:17 | RADRPT ---
EXAM DATE/TIME: 06/28/2017 12:50 [facility] COMPARISON: CT THORAX W/O CONTRAST, April 07, 2017, 16:47. INDICATIONS : Sudden onset of low back, pelvic pain with cramping to both legs MEDICAL HISTORY : Hypertension. Cardiovascular disease. SURGICAL HISTORY : Inguinal hernia repair. lap band ENCOUNTER: Initial ACUITY: 1 day PAIN SCORE: 8/10 LOCATION: Bilateral pelvic FINDINGS: A single frontal view of the pelvis demonstrates no evidence of fracture. The bony pelvic ring is in tact. Bony mineralization is normal. The soft tissues are intact. Evidence for previous hernia rep air is evident. CONCLUSION: Negative for acute process Trino Fofana MD FACR on June 28, 2017 at 13:15 Board Certified Radiologist. This report was verified electronically.
--- NOTE | 2017-06-28 13:19 | RADRPT ---
EXAM DATE/TIME: 06/28/2017 12:53 [facility] COMPARISON: No previous studies available for comparison. INDICATIONS : Sudden onset of low back pain and painful cramps to both legs MEDICAL HISTORY : Cardiovascular disease. Hypertension SURGICAL HISTORY : Inguinal hernia repair. lap band ENCOUNTER: Initial ACUITY: 1 day PAIN SCORE: 8/10 LOCATION: Bilateral low back FINDINGS: Evidence for gastric sleeve is noted. There are degenerative changes at L4-5 and L5-S1 worse at L5-S 1. Valgus pattern is unremarkable. CONCLUSION: Negative for acute process. Degenerative changes lumbar spine L5-S1. Trino Fofana MD FACR on June 28, 2017 at 13:16 Board Certified Radiologist. This report was verified electronically.
[2017-06-28 13:55] VITALS: BP 142/88
== END 2017-06-28 13:57 | disposition home or self-care (01) ==
LOC: PHED 10:01
DX: E87.6 Hypokalemia (principal); M71.22 Synovial cyst of popliteal space [Baker], left knee; M79.604 Pain in right leg; M79.605 Pain in left leg; I10 Essential (primary) hypertension; I25.2 Old myocardial infarction; Z79.02 Long term (current) use of antithrombotics/antiplatelets; Z79.82 Long term (current) use of aspirin; Z95.5 Presence of coronary angioplasty implant and graft
CPT/HCPCS: 72100; 72170; 80053; 83690; 84443; 85025; 85610; 85730; 93970; 96374; 96375; 96376; 99285; J1885; J2060

== ENCOUNTER 2017-10-24 20:04 | Emergency (ER) | payer OTHER ==
[~2017-10-24] VITALS: Ht 162.6 cm; Wt 132.4 kg
[~2017-10-24 20:04] MED LIST changes: +ASPI-183 PO; -ASPI325T PO; +BACL20TA PO; +CITA10TA4 PO; +CITA20TA4 PO; -MACR100C2 PO; +POTA20TA5 PO
[2017-10-24 20:15] VITALS: BP 151/95; PULSE 92; RESP 20; TEMP 98.4; O2SAT 99
--- NOTE | 2017-10-24 20:50 | PD ---
HPI Chief Complaint: Numbness/Tingling Time Seen by Provider: 20:27 Travel History International Travel<30 days: No Contact w/Intl Traveler<30days: No Traveled to known affect area: No History of Present Illness HPI PATIENT STATES ONE MONTH OF TINGLING/NUMBNESS TO BOTH OF HER THUMB/INDEX/MIDDLE FINGER, ALONG WITH SHOOTING/LANCINATING PAIN, 10/10, INCREASING WEAKNESS. PFSH Past Medical History Hx Anticoagulant Therapy: Yes Cardiovascular Problems: Yes Diminished Hearing: No GERD: Yes Headaches: Yes Hypertension: Yes Inguinal Hernia: Yes Immunizations Current: Yes Myocardial Infarction: Yes Influenza Vaccination: No ?: Not : 5 Para: 2 : 3 Past Surgical History Cardiac Surgery: Yes (STENTS X 2) Section: Yes (X2) Coronary Stent: Yes (x2) Other Surgery: Yes (Gastric lap band, hernia repair with mesh) Social History Alcohol Use: No Tobacco Use: No Substance Use: No Allergies-Medications (Allergen,Severity, Reaction): Coded Allergies: Fish Containing Products (Unverified Allergy, Severe, Swelling, 10/24/17) latex (Unverified Allergy, Severe, Rash, 10/24/17) pineapple (Unverified Allergy, Severe, Swelling, 10/24/17) sodium iodide (Unverified Allergy, Intermediate, SWELLING, 10/24/17) Reported Meds & Prescriptions Reported Meds & Active Scripts Active Citalopram (Citalopram Hydrobromide) 20 Mg Tab 20 Mg PO DAILY Citalopram (Citalopram Hydrobromide) 10 Mg Tab 10 Mg PO DAILY Baclofen 20 Mg Tab 20 Mg PO TID Potassium Chloride Microencaps 20 Meq Tab 20 Meq PO Q12HR Reported Vitamin D (Cholecalciferol) 400 Unit/Ml Drops 400 Units PO DAILY E-400 (Vitamin E) 400 Unit Cap 1 Cap PO DAILY [employer]-3 Krill Oil (Krill Oil) 500 Mg Cap 350 Mg PO DAILY Magnesium Oxide 250 Mg Tab 250 Mg PO DAILY Aspirin 325 Mg Tab 325 Mg PO DAILY Omeprazole 40 Mg Cap 40 Mg PO BID Zantac (Ranitidine HCl) 150 Mg Tab 150 Mg PO DAILY Memvfozsfd-Fxcwyrzguqvxg-Hppcmslg 50-325-40 Mg Tab 1 Tab PO Q4H PRN Do not exceed 6 tablets/day. Nifedipine 20 Mg Cap 30 Mg PO BID Dexamethasone 4 Mg Tab 4 Mg PO DAILY Hydroxyzine HCl 10 Mg Tab 50 Mg PO HS Metoprolol Tartrate 100 Mg Tab 100 Mg PO DAILY Plavix (Clopidogrel Bisulfate) 75 Mg Tab 75 Mg PO DAILY Review of Systems Except as stated in HPI: all other systems reviewed are Neg General / Constitutional: No: Fever Eyes: No: Visual changes HENT: No: Headaches Cardiovascular: No: Chest Pain or Discomfort Respiratory: No: Shortness of Breath Gastrointestinal: No: Abdominal Pain Genitourinary: No: Dysuria Musculoskeletal: No: Pain Skin: No Rash Neurologic: Positive: Paresthesia Psychiatric: No: Depression Endocrine: No: Polydipsia Hematologic/Lymphatic: No: Easy Bruising Physical Exam Narrative GENERAL: SKIN: Warm and dry. HEAD: Atraumatic. Normocephalic. EYES: Pupils equal and round. No scleral icterus. No injection or drainage. ENT: No nasal bleeding or discharge. Mucous membranes pink and moist. NECK: Trachea midline. No JVD. CARDIOVASCULAR: Regular rate and rhythm. NL [employer], STRONG RADIAL PULSES RESPIRATORY: No accessory muscle use. Clear to auscultation. Breath sounds equal bilaterally. GASTROINTESTINAL: Abdomen soft, non-tender, nondistended. Hepatic and splenic margins not palpable. MUSCULOSKELETAL: Extremities without clubbing, cyanosis, or edema. No obvious deformities. POSITIVE PHALEN'S AND TINNEL'S SIGN NERI BUT RIGHT WORSE THAN LEFT NEUROLOGICAL: Awake and alert. No obvious cranial nerve deficits. Motor grossly within normal limits. Five out of 5 muscle strength in the arms and legs. Normal speech. PSYCHIATRIC: Appropriate mood and affect; insight and judgment normal. Data Data Last Documented VS Vital Signs Date Time Temp Pulse Resp B/P (MAP) Pulse Ox O2 Delivery O2 Flow Rate FiO2 10/24/17 20:30 18 99 Room Air 10/24/17 20:15 98.4 92 151/95 (113) [facility] Medical Decision Making Medical Screen Exam Complete: Yes Emergency Medical Condition: Yes Medical Record Reviewed: Yes Differential Diagnosis MEDIAN NEUROPATHY V MUSCLE CRAMPS V ARTERIAL SPASM Narrative Course BACK IN MAY WHEN I SAW PATIENT HER TSH SCREENING TEST WAS ABNL HIGH SUGGESTIVE OF HYPOTHYROIDISM...ADVISED PATIENT TO SEE PCP FOR FORMAL THYROID STUDIES. TO THIS DATE THAT HAS NOT BEEN DONE. Diagnosis Primary Impression: Bilateral carpal tunnel syndrome Additional Impression: SUSPECTED HYPOTHYROIDISM Referrals: Shakeel Dhillon PhD MD FOR NERVE CONDUCTION STUDIES TO CONFIRM CARPAL TUNNEL SYNDROME Patient Instructions: Carpal Tunnel Syndrome (GEN), General Instructions Additional Instructions: YOU ARE ADVISED TO GET IN TOUCH WITH YOUR PRIMARY TO HAVE FORMAL BLOOD WORK TO EVALUATE FOR HYPOTHYROIDISM, IN ADDITION YOUR PRIMARY NEEDS TO COORDINATE FOR REFERRAL TO NEUROLOGIST FOR NERVE CONDUCTION STUDIES AND THEN TO ORTHOPEDIST ONCE YOUR CARPAL TUNNEL SYNDROME IS CONFIRMED FOR CARPAL TUNNEL RELEASE SURGERY. WITHOUT THIS INTERVENTION, YOUR MUSCLES WILL WEAKEN (ATROPHY) AND YOU WILL LOSE HAND STRENGTH AND HAND CONTROL, NOT TO MENTION PAIN. Disposition: 01 DISCHARGE HOME Condition: Stable Ameya Felipe MD Oct 24, 2017 20:50
[2017-10-24] MEDS ORDERED: IBUP1TAB5 PO (20:58)
[2017-10-24] MEDS ORDERED: MAGN250T11 PO (20:58)
[2017-10-24] MEDS ORDERED: CYAN1TAB24 PO (20:58)
[2017-10-24] MEDS ORDERED: SPIR25TA PO (20:58)
[2017-10-24] MEDS ORDERED: MELA5 PO (20:58)
[2017-10-24] MEDS ORDERED: HYDR25TA5 PO (20:58)
[2017-10-24] MEDS ORDERED: ONDANSETRON ODT 4 MG TAB PO ONE (21:00)
[2017-10-24] MEDS ORDERED: MORPHINE SULFATE 4 MG/ML INJ IM ONE (21:00)
[2017-10-24 21:14] VITALS: RESP 18
[2017-10-24 21:38] VITALS: BP 173/86
== END 2017-10-24 21:45 | disposition home or self-care (01) ==
LOC: PHED 20:04
DX: G56.03 Carpal tunnel syndrome, bilateral upper limbs (principal); I10 Essential (primary) hypertension; I25.2 Old myocardial infarction; Z95.5 Presence of coronary angioplasty implant and graft; R94.6 Abnormal results of thyroid function studies
CPT/HCPCS: 96372; 99284; J2270; L3908

== ENCOUNTER 2017-12-22 21:41 | Emergency (ER) | payer OTHER ==
[~2017-12-22 21:41] MED LIST changes: +CYAN1TAB24 PO; +HYDR25TA5 PO; +IBUP1TAB5 PO; +MELA5 PO; +SPIR25TA PO
[2017-12-22 21:44] VITALS: BP 167/89; PULSE 72; RESP 20; TEMP 97.8; O2SAT 99
[2017-12-22] MEDS ORDERED: METO100T PO (23:38)
[2017-12-22] MEDS ORDERED: diphenhydrAMINE HCL 50 MG/ML VIAL IV PUSH ONE (23:45)
[2017-12-22] MEDS ORDERED: FAMOTIDINE 20 MG/2 ML VIAL IV PUSH SCH (23:45)
[2017-12-22] MEDS ORDERED: DEXAMETHASONE SOD PHOS 20 MG/5 ML VIAL IV ONE (23:45)
--- NOTE | 2017-12-22 23:52 | PD ---
HPI . Hives Chief Complaint: Allergic/Adverse Reaction Time Seen by Provider: 23:29 Travel History International Travel<30 days: No Contact w/Intl Traveler<30days: No Traveled to known affect area: No History of Present Illness HPI Patient presents with a chief complaint of hives. Onset was about 24 hours ago. They are everywhere. She states that they are getting worse. She has used her EpiPen, Atarax and Benadryl with no relief of her symptoms. She only took 25 mg of Atarax but her other medications have been in the therapeutic range. She denies any difficulty breathing or nausea/vomiting. She has had this before. Symptoms are mild. PFSH Past Medical History Hx Anticoagulant Therapy: Yes Cardiovascular Problems: Yes Diminished Hearing: No GERD: Yes Headaches: Yes Hypertension: Yes Inguinal Hernia: Yes Immunizations Current: Yes Myocardial Infarction: Yes : 5 Para: 2 : 3 Past Surgical History Cardiac Surgery: Yes (STENTS X 2) Section: Yes (X2) Coronary Stent: Yes (x2) Other Surgery: Yes (Gastric lap band, hernia repair with mesh) Social History Alcohol Use: No Tobacco Use: No Substance Use: No Allergies-Medications (Allergen,Severity, Reaction): Coded Allergies: Fish Containing Products (Unverified Allergy, Severe, Swelling, 12/22/17) latex (Unverified Allergy, Severe, Rash, 12/22/17) pineapple (Unverified Allergy, Severe, Swelling, 12/22/17) sodium iodide (Unverified Allergy, Intermediate, SWELLING, 12/22/17) Reported Meds & Prescriptions Reported Meds & Active Scripts Active Baclofen 20 Mg Tab 20 Mg PO TID Potassium Chloride Microencaps 20 Meq Tab 20 Meq PO Q12HR Reported Metoprolol Tartrate 100 Mg Tab 100 Mg PO BID Ibuprofen 400 Mg Tab 400 Mg PO Q6H PRN B12 (Cyanocobalamin) 1,000 Mcg Tab 1,500 Mcg PO DAILY Hydrochlorothiazide 25 Mg Tab 25 Mg PO DAILY Spironolactone 25 Mg Tab 25 Mg PO BIDPC Vitamin D (Cholecalciferol) 400 Unit/Ml Drops 400 Units PO DAILY Magnesium Oxide 250 Mg Tab 250 Mg PO 3 TIMES PER WEEK Icspowmrvy-Tifqailbpiqgm-Lsienvko 50-325-40 Mg Tab 1 Tab PO Q4H PRN Do not exceed 6 tablets/day. Nifedipine 20 Mg Cap 30 Mg PO BID Hydroxyzine HCl 10 Mg Tab 50 Mg PO HS Plavix (Clopidogrel Bisulfate) 75 Mg Tab 75 Mg PO DAILY Review of Systems Except as stated in HPI: all other systems reviewed are Neg Physical Exam Narrative GENERAL: Awake and alert and in no acute distress. SKIN: Warm and dry. Diffuse urticarial rash and HEAD: Normocephalic/atraumatic. EYES: Pupils are equal. Extraocular movements are intact. NECK: Normal range of motion. CARDIOVASCULAR: Regular rate and rhythm. RESPIRATORY: Nonlabored respirations. Eyes are clear with full air movement throughout. MUSCULOSKELETAL: Atraumatic. NEUROLOGICAL: Nonfocal. PSYCHIATRIC: Appropriate mood and affect. Data Data Last Documented VS Vital Signs Date Time Temp Pulse Resp B/P (MAP) Pulse Ox O2 Delivery O2 Flow Rate FiO2 12/23/17 02:30 73 177/88 12/23/17 01:59 16 100 Room Air 12/22/17 21:44 97.8 Orders Orders ^ Saline Lock (12/22/17 23:32) Diphenhydramine Inj (Benadryl Inj) (12/22/17 23:45) Dexamethasone Inj (Decadron Inj) (12/22/17 23:45) Famotidine Inj (Pepcid Inj) (12/22/17 23:45) Diphenhydramine Inj (Benadryl Inj) (12/23/17 00:45) Hydroxyzine Hcl (Atarax) (12/23/17 01:45) Epinephrine (1:1000) Inj (Adrenalin (1:1 (12/23/17 02:00) MDM Medical Decision Making Medical Screen Exam Complete: Yes Emergency Medical Condition: Yes Differential Diagnosis The differential diagnosis of the skin rash includes but is not limited to allergic urticaria, scabies, insect bites, contact dermatitis Narrative Course This patient presents with diffuse urticaria with no systemic symptoms. She has already used an EpiPen at home without relief. She had a subtherapeutic dose of Atarax at about 3:30 PM with no relief. She had a therapeutic dose of Benadryl at 6:30 PM without relief. I have ordered IV Benadryl, IV Pepcid and IV Decadron. She will be reassessed following treatment. This patient has required several medications before her symptoms started to improve. She was given 2 doses of IV Benadryl 50 mg each. He was then given Atarax 100 mg orally. She is finally feeling better. She will be discharged home. Diagnosis Primary Impression: Urticaria Patient Instructions: General Instructions, Urticaria (ED) Med/Other Pt SpecificInfo: Prescription(s) given Scripts Epinephrine Inj (Epipen 2-Fernando Inj) 0.3 Mg/0.3 Ml Pfpen 0.3 MG IM ONCE Y for ALLERGIC REACTION, #1 PACK 0 Refills Prov: Milena Latham MD 12/23/17 Hydrochlorothiazide (Hydrochlorothiazide) 25 Mg Tab 50-100 MG PO every 6H for rash, #30 TAB 0 Refills Prov: Milena Latham MD 12/23/17 Disposition: 01 DISCHARGE HOME Condition: Stable Milena Latham MD Dec 22, 2017 23:52
[2017-12-23 00:41] VITALS: BP 182/98; PULSE 69; RESP 18; O2SAT 100
[2017-12-23] MEDS ORDERED: diphenhydrAMINE HCL 50 MG/ML VIAL IV PUSH ONE (00:45)
[2017-12-23] MEDS ORDERED: hydrOXYzine HCL 50 MG TAB PO ONE (01:45)
[2017-12-23 01:59] VITALS: BP 177/88; PULSE 74; RESP 16; O2SAT 100
[2017-12-23] MEDS ORDERED: EPINEPHrine HCL (1:1000) 1 MG/ML VIAL IM ONE (02:00)
[2017-12-23 02:30] VITALS: PULSE 73
[2017-12-23] MEDS ORDERED: EPIP0.3I IM (02:54)
[2017-12-23] MEDS ORDERED: HYDR25TA5 PO (02:54)
[2017-12-23 03:07] VITALS: BP 175/82
== END 2017-12-23 03:09 | disposition home or self-care (01) ==
LOC: PHED 21:41
DX: L50.9 Urticaria, unspecified (principal); I10 Essential (primary) hypertension; I25.2 Old myocardial infarction
CPT/HCPCS: 96372; 96374; 96375; 96376; 99284; J0171; J1100; J1200